=== PATIENT | male | born 1965 | race Two or more races ===

== ENCOUNTER 2018-09-22 15:55 | Inpatient (IN) | payer MEDICAID ==
[2018-09-22] MEDS ORDERED: Sodium Chloride 0.9% 1,000 ML IV ONE ×3 (16:32→23:51)
[2018-09-22] MEDS ORDERED: INSULIN HUMAN REGULAR 100 UNITS/ML UNIT IVP ONE ×2 (17:44→18:45)
[2018-09-22] MEDS ORDERED: INSULIN HUMAN REGULAR 100 UNITS/ML UNIT ONE ×3 (17:50→19:50)
[2018-09-22 18:01] LABS: PaO2 127.3 mmHg (80.0-100.0); pH 7.27 (7.35-7.45)
[2018-09-22 18:02] LABS: sO2c 98.2 % (92.0-100.0)
[2018-09-22 18:03] LABS: PaCO2 18.8 mmHg (35.0-45.0)
[2018-09-22 18:35] LABS: URINE SOURCE CLEAN C
[2018-09-22 18:39] LABS: URINE BILIRUBIN NEGATIVE (NEGATIVE); URINE BLOOD MODERATE (NEGATIVE); URINE GLUCOSE (UA) >=1000 mg/dL (NEGATIVE); URINE KETONE >=80 mg/dL (NEGATIVE); URINE LEUKOCYTE ESTERASE NEGATIVE (NEGATIVE); URINE MICROSCOPIC INDICATED? YES; URINE NITRATE NEGATIVE (NEGATIVE); URINE PH 5.5 (4.6 - 8.0); URINE PROTEIN NEGATIVE (NEGATIVE); URINE UROBILINOGEN 0.2 E.U./dL (0.2 - 1.0)
[2018-09-22 18:47] LABS: ALB/GLOB RATIO 0.7 (1.0-1.8); ALKALINE PHOSPHATASE 306 U/L (34-104); AMYLASE SERUM 147 U/L (29-103); BILIRUBIN,TOTAL 1.2 mg/dL (0.3-1.0); BUN - UREA NITROGEN 23 mg/dL (7-25); CALCIUM SERUM 8.6 mg/dL (8.6-10.3); CREATININE - SERUM 1.1 mg/dL (0.7-1.3); GFR AFRICAN-AMERICAN > 60.0 ml/min (>90); GFR NON AFRICAN-AMERICAN > 60.0 ml/min; LIPASE 37 U/L (11-82); POTASSIUM SERUM 4.4 mEq/L (3.5-5.1); SGOT 15 U/L (13-39); SGPT/ALT 15 U/L (7-52); TOTAL PROTEIN,SERUM 7.6 gm/dL (6.0-8.3)
[2018-09-22 19:19] LABS: HEMATOCRIT 37.9 % (41.0-60); HEMOGLOBIN 12.5 gm/dL (12-16); LYMPHOCYTE ABSOLUTE 0.5 Th/cmm (1.5-3.0); MEAN CELL VOLUME 93.9 fl (80-99); MEAN CORPUSCULAR HEMOGLOBIN 30.8 pg (26.0-30.0); MEAN CORPUSCULAR HGB CONC 32.9 pg (28.0-36.0); MEAN PLATELET VOLUME 9.9 fl; MONOCYTE ABSOLUTE 0.5 Th/cmm (0.3-1.0); NEUTROPHILE ABSOLUTE 10.5 Th/cmm (1.8-8.0); PLATELET COUNT 154 Th/cmm (150-400); RED BLOOD COUNT 4.04 Mil/cmm (4.30-5.70); RED CELL DISTRIBUTION WIDTH 12.1 % (11.5-20.0); WHITE BLOOD COUNT 11.5 Th/cmm (4.8-10.8)
--- NOTE | 2018-09-22 19:32 | ED Physician Chart ---
ED Chief Complaint/HPI - Patient Information Date Seen:: 09/22/18 Time Seen:: 16:32 Chief Complaint:: high blood sugar History of Present Illness:: high blood sugar in a non-compliant diabetic. Allergies:: Allergies Allergy/AdvReac Type Severity Reaction Status Date / Time No Known Allergies Allergy Verified 09/22/18 16:31 Vitals:: Vital Signs - 8 hr 09/22/18 16:32 Temp 97 F HR 77 RR 18 BP 114/75 O2 Sat % 97 Historian:: Patient, Family Member Review:: Nurse's Note Reviewed ED Review of Systems - Review of Systems General/Constitutional: No fever, No chills, Weakness, No diaphoresis, Loss of appetite Skin: No skin lesions, No rash, No bruising Head: No headache, No light-headedness Eyes: No loss of vision, No pain, No diplopia ENT: No earache, No nasal drainage, No sore throat, No tinnitus Neck: No neck pain, No swelling, No thyromegaly, No stiffness, No mass noted Cardio Vascular: No chest pain, No palpitations, No PND, No orthopnea, No edema Pulmonary: No SOB, No cough, No sputum, No wheezing GI: No nausea, No vomiting, No diarrhea, No pain, No melena, No hematochezia, No constipation, No hematemesis G/U: No dysuria, No frequency, No hematuria Musculoskeletal: No bone or joint pain, No back pain, No muscle pain Endocrine: Polyuria, Polydipsia, No polydipsia Psychiatric: No prior psych history, No depression, No anxiety, No suicidal ideation Hematopoietic: No bruising, No lymphadenopathy Allergic/Immuno: No urticaria, No angioedema Neurological: No syncope, No focal symptoms, No weakness, No paresthesia, No headache, No seizure, No dizziness, No confusion, No vertigo ED Past Medical History - Past Medical History Obtainable: No Past Medical History: DM Family Medical History - Family Member Mother History Unknown: Yes ED Physical Exam - Physical Examination General/Constitutional: Awake, Alert, GCS 15, Non-toxic appearing, Ambulatory Other Gen/Cons comments:: chronically ill appearing. Looks much older than his stated age. weak appearing Head: Atraumatic Eyes: PERRL, EOMI Other Eyes comments:: sunken in eyes. Skin: Nl inspection, No rash, No skin lesions, No ecchymosis, Well hydrated, No lymphadenopathy ENMT: External ears, nose nl, Nasal exam nl Neck: Nontender, Full ROM w/o pain, No nuchal rigidity, No mass, No stridor Respiratory: Nl effort/Exclusion, Clear to Auscultation, No Wheeze/Rhonchi/Rales Cardio Vascular: RRR, No murmur, gallop, rubs, NL S1 S2 GI: No tenderness/rebounding/guarding, No organomegaly, No hernia, Normal BS's, Nondistended, No mass/bruits, No McBurney tenderness Other comments:: left flank pain. Extremities: No tenderness or effusion, Full ROM, normal strength in all extremities, No edema, Normal digits & nails Neuro/Psych: Alert/oriented, Normal motor strength, Judgement/insight normal, Normal gait Other Neuro/Psych comments:: tired appearing. Misc: Normal back, No paraspinal tenderness ED Labs/Radiology/EKG Results - Lab Results Results: Laboratory Tests 09/22/18 09/22/18 09/22/18 16:32 17:27 17:40 WBC 11.5 H RBC 4.04 L Hgb 12.5 Hct 37.9 L MCV 93.9 MCH 30.8 H MCHC Differential 32.9 RDW 12.1 Plt Count 154 MPV 9.9 Add Manual Diff YES Specimen Source Arterial Sample Site RB pH 7.27 L pCO2 18.8 L* pO2 127.3 H HCO3 8.4 L Base Excess -16.0 L O2 Saturation 98.2 Ronny Test NA Vent Rate NA Inspired O2 21 Tidal Volume NA PEEP NA Pressure (ins/psv/peep) NA Critical Value SH Whole Bld Lactic Acid 2.18 H* ED Assessment - Assessment General Assessment: DR. WINN TO FOLLOW UP ON CT SCAN. ED Septic Shock - . Is Septic Shock (SBP<90, OR Lactate>4 mmol\L) present?: No - <6hrs of presentation: Vital Signs: Vital Signs - 8 hr 09/22/18 16:32 Temp 97 F HR 77 RR 18 BP 114/75 O2 Sat % 97 ED Reassessment (Disposition) - Reassessment Reassessment Condition:: Improved - Diagnosis Diagnosis:: Diabetic ketoacidosis Dehydration Elevated lactic acid Leukocytosis - Patient Disposition Admitted to:: ICU Condition at Disposition:: Critical, Improved
[2018-09-22] MEDS ORDERED: Sodium Chloride 0.9% 1,000 ML IV SCH (19:45)
[2018-09-22 20:12] LABS: URINE COLOR YELLOW
[2018-09-22 20:14] LABS: URINE CLARITY CLOUDY (CLEAR)
[2018-09-22 20:15] LABS: URINE RBC 0-2 /hpf (0-5)
[2018-09-22 20:17] LABS: URINE BACTERIA MANY /hpf (NONE SEEN); URINE EPITHELIAL CELLS NONE SEEN /lpf (FEW)
[2018-09-22 20:33] LABS: GLUCOSE 689 mg/dL (70-105); SODIUM SERUM 117 mEq/L (136-145)
[2018-09-22] MEDS ORDERED: Piperacillin Sodium/Tazobact 3.375 gm Vial IV ONE (21:30)
[2018-09-22 21:39] LABS: BAND NEUTROPHILE 0 % (0-10); EOSINOPHIL 1 % (0-5); LYMPHOCYTE 4 % (20-50); MONOCYTE 4 % (2-10); NEUTROPHILS 91 % (40-80)
[2018-09-22 22:44] LABS: CHLORIDE 84 mEq/L (98-107)
[2018-09-22 22:45] LABS: ANION GAP 27.4 (7.0-16.0)
[2018-09-23 00:24] LABS: ALB/GLOB RATIO 0.6 (1.0-1.8); ALBUMIN 2.3 gm/dL (4.2-5.5); ALKALINE PHOSPHATASE 227 U/L (34-104); ANION GAP 15.6 (7.0-16.0); BILIRUBIN,TOTAL 0.7 mg/dL (0.3-1.0); BUN - UREA NITROGEN 19 mg/dL (7-25); CALCIUM SERUM 7.7 mg/dL (8.6-10.3); CARBON DIOXIDE 15.9 mEq/L (21.0-31.0); CHLORIDE 98 mEq/L (98-107); CREATININE - SERUM 0.8 mg/dL (0.7-1.3); GFR AFRICAN-AMERICAN > 60.0 ml/min (>90); GFR NON AFRICAN-AMERICAN > 60.0 ml/min; POTASSIUM SERUM 3.5 mEq/L (3.5-5.1); SGOT 10 U/L (13-39); SGPT/ALT 11 U/L (7-52); SODIUM SERUM 126 mEq/L (136-145); TOTAL PROTEIN,SERUM 5.9 gm/dL (6.0-8.3)
[2018-09-23 00:31] LABS: pH 7.32 (7.35-7.45)
[2018-09-23 03:22] VITALS: BP 95/54
[2018-09-23 05:13] LABS: BASOPHILE ABSOLUTE 0.1 Th/cumm (0-0.2); LYMPHOCYTE ABSOLUTE 0.8 Th/cmm (1.5-3.0); NEUTROPHILE ABSOLUTE 8.7 Th/cmm (1.8-8.0)
[2018-09-23] MEDS ORDERED: Piperacillin Sodium/Tazobact 3.375 gm Vial IV ONE (05:21)
[2018-09-23 05:32] LABS: % BASOPHILS 0.8 % (0.0-2.0); % EOSINOPHILS 1.7 % (0.0-5.0); % LYMPHOCYTES 7.8 % (20.0-50.0); % MONOCYTES 6.3 % (2.0-10.0); % NEUTROPHILS 83.4 % (40.0-80.0); EOSINOPHILE ABSOLUTE 0.2 Th/cmm (0.1-0.4); HEMATOCRIT 34.6 % (41.0-60); HEMOGLOBIN 11.3 gm/dL (12-16); MEAN CELL VOLUME 94.4 fl (80-99); MEAN CORPUSCULAR HEMOGLOBIN 30.7 pg (26.0-30.0); MEAN CORPUSCULAR HGB CONC 32.5 pg (28.0-36.0); MEAN PLATELET VOLUME 9.3 fl; MONOCYTE ABSOLUTE 0.7 Th/cmm (0.3-1.0); PLATELET COUNT 140 Th/cmm (150-400); RED BLOOD COUNT 3.66 Mil/cmm (4.30-5.70); RED CELL DISTRIBUTION WIDTH 12.2 % (11.5-20.0); WHITE BLOOD COUNT 10.5 Th/cmm (4.8-10.8)
[2018-09-23 05:49] LABS: ALB/GLOB RATIO 0.6 (1.0-1.8); ALBUMIN 2.3 gm/dL (4.2-5.5); ALKALINE PHOSPHATASE 218 U/L (34-104); ANION GAP 14.4 (7.0-16.0); BILIRUBIN,TOTAL 0.7 mg/dL (0.3-1.0); BUN - UREA NITROGEN 18 mg/dL (7-25); CALCIUM SERUM 7.8 mg/dL (8.6-10.3); CARBON DIOXIDE 17.2 mEq/L (21.0-31.0); CHLORIDE 102 mEq/L (98-107); CREATININE - SERUM 0.8 mg/dL (0.7-1.3); CREATININE KINASE 26 U/L (30-223); GFR AFRICAN-AMERICAN > 60.0 ml/min (>90); GFR NON AFRICAN-AMERICAN > 60.0 ml/min; GLUCOSE 300 mg/dL (70-105); MAGNESIUM 1.8 mg/dL (1.9-2.7); POTASSIUM SERUM 3.6 mEq/L (3.5-5.1); SGOT 10 U/L (13-39); SGPT/ALT 11 U/L (7-52); SODIUM SERUM 130 mEq/L (136-145); TOTAL PROTEIN,SERUM 5.9 gm/dL (6.0-8.3)
--- NOTE | 2018-09-23 07:19 | Diagnostic Imaging Report ---
Exam: CT examination abdomen pelvis. HISTORY: Left flank pain. Total DLP equals 368 CTDI equals 7.3 Findings: Multiple contiguous thin section of the abdomen pelvis obtained from lower thorax to pubic symphysis without the administration intravenous or oral contrast material therefore the study is limited. Motion artifacts present. No prior studies available for comparison. The study demonstrates mild atelectatic changes in the left lung base. The liver and spleen are intact. The visualized pancreas is normal. The gallbladder is distended. The kidneys demonstrate no evidence of obstructive uropathy or nephrolithiasis. Evaluation of the abdomen is limited due to lack of fat planes. There is evidence for distention of the urinary bladder. The appendix is not seen. Bony structures intact. There is no evidence for lytic or blastic changes. Vascular calcifications appreciated. IMPRESSION: Limited examination without contrast material. Left basilar atelectasis. Distended urinary bladder. No evidence of obstructive uropathy or nephrolithiasis.
[2018-09-23] MEDS ORDERED: INSULIN HUMAN REGULAR 100 UNITS/ML UNIT SUBQ SCH (07:30)
[2018-09-23 07:41] LABS: BAND NEUTROPHILE 1 % (0-10); LYMPHOCYTE 10 % (20-50); MONOCYTE 6 % (2-10); NEUTROPHILS 83 % (40-80)
[2018-09-23] MEDS: INSULIN ASPART SLIDING SCALE 100 UNITS/ML UNIT SUBQ SCH ×4 (08:20→21:28)
[2018-09-23] MEDS ORDERED: Pneumococcal Vaccine 0.5 mL Vial IM ONE (10:00)
[2018-09-23 13:55] LABS: GLUCOSE 355 mg/dL (70-105)
[2018-09-23] MEDS: 0.9% NS w/20 mEq KCL 1,000 ML IV SCH (15:57)
[2018-09-23] MEDS ORDERED: Insulin Detemir 100 units/mL 10mL Vial SUBQ SCH ×2 (17:15→21:00)
[2018-09-23] MEDS: Insulin Detemir 100 units/mL 10mL Vial SUBQ SCH (17:32)
--- NOTE | 2018-09-23 23:49 | History & Physical ---
ADMIT DATE: 09/23/2018 CHIEF COMPLAINT: Left flank pain. HISTORY OF PRESENT ILLNES: This is a 53-year-old male who was evaluated and seen for left flank pain, diagnosed with hyperglycemia with acidosis, subsequently admitted to the hospital for further treatments. The patient denies any fever, no chills, no dysuria, no nausea, no vomiting, no abdominal pain, no diarrhea, no vomiting. The patient's last review with his PCP was about more than 6 months ago. The patient states he has not been taking his diabetic medications on a regular basis. PAST MEDICAL HISTORY: Diabetes. PAST SURGICAL HISTORY: Denies. FAMILY HISTORY: Denies. SOCIAL HISTORY: Denies any alcohol, tobacco, or street drug use. MEDICATIONS: Per medication reconciliation. ALLERGIES: No known drug allergies. REVIEW OF SYSTEMS: As per HPI, 12-point review of system is negative. PHYSICAL EXAMINATION: VITAL SIGNS: Temperature 98.0, pulse 87, respiration 20, blood pressure 90/62, pain is 0/10, 100% on room air. HEENT: Unremarkable. HEART: S1, S2 normal. LUNGS: Clear to auscultation bilaterally. ABDOMEN: Soft, nontender, no guarding. NEUROLOGIC: ___. LABORATORY DATA: Has been reviewed. ASSESSMENT: 1. Leukocytosis with elevated lactic acid, questionable sepsis. 2. DKA. 3. Hyperglycemia. 4. Noncompliant. PLANT: The patient was admitted to tele unit. Was started on high flow IV floods, basal bolus insulin started. Monitor blood sugar closely. Empiric antibiotic is being given. Follow final cultures. Followup labs in the morning. Medication and treatment compliance highly advised. CT abdomen and pelvis results reviewed. No significant findings noted. Discussed with the patient regarding the condition and plan of care with nursing staff. JOB# [id number]
[2018-09-24 05:08] LABS: % BASOPHILS 0.7 % (0.0-2.0); % EOSINOPHILS 0.8 % (0.0-5.0); % LYMPHOCYTES 11.3 % (20.0-50.0); % MONOCYTES 7.7 % (2.0-10.0); % NEUTROPHILS 79.5 % (40.0-80.0); BASOPHILE ABSOLUTE 0.1 Th/cumm (0-0.2); EOSINOPHILE ABSOLUTE 0.1 Th/cmm (0.1-0.4); HEMATOCRIT 32.6 % (41.0-60); HEMOGLOBIN 10.9 gm/dL (12-16); LYMPHOCYTE ABSOLUTE 0.9 Th/cmm (1.5-3.0); MEAN CELL VOLUME 91.8 fl (80-99); MEAN CORPUSCULAR HEMOGLOBIN 30.6 pg (26.0-30.0); MEAN CORPUSCULAR HGB CONC 33.4 pg (28.0-36.0); MEAN PLATELET VOLUME 8.1 fl; MONOCYTE ABSOLUTE 0.6 Th/cmm (0.3-1.0); NEUTROPHILE ABSOLUTE 6.5 Th/cmm (1.8-8.0); PLATELET COUNT 123 Th/cmm (150-400); RED BLOOD COUNT 3.55 Mil/cmm (4.30-5.70); RED CELL DISTRIBUTION WIDTH 12.3 % (11.5-20.0); WHITE BLOOD COUNT 8.2 Th/cmm (4.8-10.8)
[2018-09-24] MEDS: 0.9% NS w/20 mEq KCL 1,000 ML IV SCH (05:12)
[2018-09-24 05:25] LABS: BUN - UREA NITROGEN 19 mg/dL (7-25); CALCIUM SERUM 7.8 mg/dL (8.6-10.3); CARBON DIOXIDE 22.1 mEq/L (21.0-31.0); CHLORIDE 106 mEq/L (98-107); CREATININE - SERUM 0.9 mg/dL (0.7-1.3); GFR AFRICAN-AMERICAN > 60.0 ml/min (>90); GFR NON AFRICAN-AMERICAN > 60.0 ml/min; POTASSIUM SERUM 3.1 mEq/L (3.5-5.1); SODIUM SERUM 134 mEq/L (136-145)
[2018-09-24 05:37] LABS: GLUCOSE 95 mg/dL (70-105)
--- NOTE | 2018-09-24 05:49 | Consultation ---
DATE OF CONSULTATION: 09/23/2018 INFECTIOUS DISEASE CONSULTATION REFERRING PHYSICIAN: Dr. Eliseo Meléndez. REASON FOR CONSULTATION: UTI. HISTORY OF PRESENT ILLNESS: The patient is a 53-year-old male with a past medical history of diabetes mellitus type 2 diagnosed recently hypokalemia, presented to ER with a left-sided flank pain. The patient denies any fever or chills. On initial evaluation, the patient's temperature was 97 degrees Fahrenheit and WBC count was 10,500. Urinalysis showed significant pyuria and bacteria. Blood culture and urine cultures are pending. Zosyn was started and ID consult was called for the antibiotic management. PAST MEDICAL HISTORY: Include diabetes mellitus type 2. PAST SURGICAL HISTORY: Unknown. FAMILY HISTORY: Noncontributory. SOCIAL HISTORY: The patient denies any smoking, alcohol or drug use. MEDICATIONS: As per medication reconciliation sheet. Antibiotic perera, the patient is on Zosyn. ALLERGIES: NKDA. REVIEW OF SYSTEMS: GENERAL: The patient has no fever, no chills. HEENT: No diplopia, no photophobia, no sore throat. RESPIRATORY: No cough, no shortness of breath. CARDIOVASCULAR: No chest pain or palpitation. GASTROINTESTINAL: No nausea, no vomiting, no diarrhea, no constipation. GENITOURINARY: No dysuria. NEUROLOGIC: No headache, no dizziness, no focal weakness. BACK: The patient has no tenderness. No spinal tenderness. MUSCULOSKELETAL: No muscle pain or joint pain. SKIN: No rash. PHYSICAL EXAMINATION: CURRENT VITAL SIGNS: Shows temperature is 98 degrees Fahrenheit, pulse 87, respiration is 20, blood pressure 98/62. GENERAL: The patient is comfortable lying in the bed, not in acute distress. HEENT: Head is normocephalic, atraumatic. Oral cavity moist, pink tongue. NECK: Supple, no JVD, no bruit. Trachea midline. CHEST: Bilateral breaths heard. No crackles or wheezing. HEART: S1, S2 within normal limits. Regular rhythm. No murmur, no gallop. ABDOMEN: Soft, nontender, nondistended. Bowel sounds present. EXTREMITIES: No cyanosis, no clubbing, no edema. NEUROLOGICAL: Alert, awake, oriented x 3. BACK: The patient has no CVA tenderness, no spinal tenderness. SKIN: Intact. LABORATORY PERERA: WBC count 10,500, hemoglobin 11.3, hematocrit 34.6, platelets are 140,000, neutrophils 83.4%. Sodium 130, potassium 3.6, chloride 102, bicarb is 17.2, BUN is 18, creatinine 0.8, glucose is 300. AST is 10, ALT is 11, alkaline phosphatase 218, magnesium 1.8. CT scan of abdomen and pelvis, left basal atelectasis, distended urinary bladder. CT scan shows a distended urinary bladder. IMPRESSION: 1. Complicated urinary tract infection. 2. Diabetes mellitus type 2. 3. Diabetic ketoacidosis. 4. Noncompliance. 4. Hypomagnesemia. RECOMMENDATIONS: Continue Zosyn at this time. Follow the culture report and go from there. Add acetone level and PSA level in the morning. Check the labs in the morning. Thank you, Dr. Meléndez, for involving me in taking care of this patient. JOB# [id number]
[2018-09-24] MEDS: INSULIN ASPART SLIDING SCALE 100 UNITS/ML UNIT SUBQ SCH ×4 (07:42→20:58)
[2018-09-24] MEDS: Insulin Detemir 100 units/mL 10mL Vial SUBQ SCH (17:32)
[2018-09-24] MEDS ORDERED: Potassium Chloride 20 mEq ER Tab PO ONE (18:26)
--- NOTE | 2018-09-24 20:44 | General Progress Note ---
Subjective - Review of Systems Service Date: 09/24/18 Subjective: Patient doing better denied any complaints Objective - Results Result Diagrams: 09/24/18 05:00 09/24/18 05:00 Recent Labs: Laboratory Last Values WBC 8.2 Th/cmm (4.8-10.8) 09/24/18 05:00 RBC 3.55 Mil/cmm (4.30-5.70) L 09/24/18 05:00 Hgb 10.9 gm/dL (12-16) L 09/24/18 05:00 Hct 32.6 % (41.0-60) L 09/24/18 05:00 MCV 91.8 fl (80-99) 09/24/18 05:00 MCH 30.6 pg (26.0-30.0) H 09/24/18 05:00 MCHC Differential 33.4 pg (28.0-36.0) 09/24/18 05:00 RDW 12.3 % (11.5-20.0) 09/24/18 05:00 Plt Count 123 Th/cmm (150-400) L 09/24/18 05:00 MPV 8.1 fl 09/24/18 05:00 Add Manual Diff YES 09/22/18 16:32 Neutrophils % 79.5 % (40.0-80.0) 09/24/18 05:00 Band Neutrophils % 1 % (0-10) 09/23/18 05:00 Lymphocytes % 11.3 % (20.0-50.0) L 09/24/18 05:00 Monocytes % 7.7 % (2.0-10.0) 09/24/18 05:00 Eosinophils % 0.8 % (0.0-5.0) 09/24/18 05:00 Basophils % 0.7 % (0.0-2.0) 09/24/18 05:00 Neutrophils (Manual) 83 % (40-80) H 09/23/18 05:00 Lymphocytes 10 % (20-50) L 09/23/18 05:00 Monocytes 6 % (2-10) 09/23/18 05:00 Eosinophils 1 % (0-5) 09/22/18 16:32 Smear Path Review 09/23/18 05:00 Specimen Source arterial 09/22/18 23:41 Sample Site RB 09/22/18 23:41 pH 7.32 (7.35-7.45) L 09/22/18 23:41 pCO2 27.0 mmHg (35.0-45.0) L 09/22/18 23:41 pO2 103.0 mmHg (80.0-100.0) H 09/22/18 23:41 HCO3 13.7 mEq/L (20.0-26.0) L 09/22/18 23:41 Base Excess -10.5 mEq/L (-3.0-3.0) L 09/22/18 23:41 O2 Saturation 97.0 % (92.0-100.0) 09/22/18 23:41 Ronny Test n/a 09/22/18 23:41 Vent Rate n/a 09/22/18 23:41 Inspired O2 21 09/22/18 23:41 Tidal Volume n/a 09/22/18 23:41 PEEP n/a 09/22/18 23:41 Pressure (ins/psv/peep) n/a 09/22/18 23:41 Critical Value dv 09/22/18 23:41 Sodium 134 mEq/L (136-145) L 09/24/18 05:00 Potassium 3.1 mEq/L (3.5-5.1) L 09/24/18 05:00 Chloride 106 mEq/L (98-107) 09/24/18 05:00 Carbon Dioxide 22.1 mEq/L (21.0-31.0) 09/24/18 05:00 Anion Gap 9.0 (7.0-16.0) 09/24/18 05:00 BUN 19 mg/dL (7-25) 09/24/18 05:00 Creatinine 0.9 mg/dL (0.7-1.3) 09/24/18 05:00 Est GFR ( Amer) > 60.0 ml/min (>90) 09/24/18 05:00 Est GFR (Non-Af Amer) > 60.0 ml/min 09/24/18 05:00 BUN/Creatinine Ratio 21.1 09/24/18 05:00 Glucose 95 mg/dL (70-105) D 09/24/18 05:00 POC Glucose 314 MG/DL (70 - 105) H 09/24/18 17:00 Whole Bld Lactic Acid 2.21 mmol/L (0.60-1.99) H* 09/22/18 21:07 Calcium 7.8 mg/dL (8.6-10.3) L 09/24/18 05:00 Phosphorus 3.0 mg/dL (2.5-5.0) 09/22/18 17:40 Magnesium 1.8 mg/dL (1.9-2.7) L 09/23/18 05:00 Total Bilirubin 0.7 mg/dL (0.3-1.0) 09/23/18 05:00 AST 10 U/L (13-39) L 09/23/18 05:00 ALT 11 U/L (7-52) 09/23/18 05:00 Alkaline Phosphatase 218 U/L (34-104) H 09/23/18 05:00 Creatine Kinase 20 U/L (30-223) L 09/23/18 21:45 Troponin I 0.01 ng/mL (0.01-0.05) 09/23/18 21:45 Total Protein 5.9 gm/dL (6.0-8.3) L 09/23/18 05:00 Albumin 2.3 gm/dL (4.2-5.5) L 09/23/18 05:00 Globulin 3.6 gm/dL 09/23/18 05:00 Albumin/Globulin Ratio 0.6 (1.0-1.8) L 09/23/18 05:00 Amylase 147 U/L (29-103) H 09/22/18 17:40 Lipase 37 U/L (11-82) 09/22/18 17:40 Urine Source CLEAN C 09/22/18 16:22 Urine Color YELLOW 09/22/18 16:22 Urine Clarity CLOUDY (CLEAR) 09/22/18 16:22 Urine pH 5.5 (4.6 - 8.0) 09/22/18 16:22 Ur Specific Mcdade 1.015 (1.005-1.030) 09/22/18 16:22 Urine Protein NEGATIVE mg/dL (NEGATIVE) 09/22/18 16:22 Urine Glucose (UA) >=1000 mg/dL (NEGATIVE) H 09/22/18 16:22 Urine Ketones >=80 mg/dL (NEGATIVE) H 09/22/18 16:22 Urine Blood MODERATE (NEGATIVE) H 09/22/18 16:22 Urine Nitrate NEGATIVE (NEGATIVE) 09/22/18 16:22 Urine Bilirubin NEGATIVE (NEGATIVE) 09/22/18 16:22 Urine Urobilinogen 0.2 E.U./dL (0.2 - 1.0) 09/22/18 16:22 Ur Leukocyte Esterase NEGATIVE (NEGATIVE) 09/22/18 16:22 Urine RBC 0-2 /hpf (0-5) H 09/22/18 16:22 Urine WBC 10-25 /hpf (0-5) H 09/22/18 16:22 Ur Epithelial Cells NONE SEEN /lpf (FEW) 09/22/18 16:22 Urine Bacteria MANY /hpf (NONE SEEN) H 09/22/18 16:22 Serum Ketones NEGATIVE (NEGATIVE) 09/24/18 05:00 - Physical Exam Vitals and I&O: Vital Signs Temp 98.5 F 09/24/18 13:00 Pulse 90 09/24/18 13:00 Resp 18 09/24/18 13:00 BP 99/67 09/24/18 13:00 Pulse Ox 97 09/24/18 08:12 Intake & Output 09/24/18 09/24/18 09/25/18 06:59 18:59 06:59 Intake Total 1250 750 Balance 1250 750 Weight (lbs) 54.431 kg 54.431 kg Intake: Intake, IV Amount 1100 50 0.9% NS w/20 mEq KCL 1, 1000 000 ml @ 100 mls/hr IV . Q10H [facility] Rx#:[id number] Piperacillin Sodium/ 100 50 Tazobact 3.375 gm In Sodium Chloride 0.9% 50 ml @ 100 mls/hr IV Q6HR [facility] Rx#:[id number] Oral 150 700 Other: # Voids 3 3 # Bowel Movements 0 1 Stool Characteristics Formed Formed Weight Source Bedscale Bedscale Active Medications: Current Medications Acetaminophen (Tylenol) 650 mg PO Q6H PRN PRN Reason: Pain (Mild) Stop: 11/22/18 12:44 Last Admin: 09/23/18 13:12 Dose: 650 mg Potassium Chloride/Sodium Chloride (0.9% Ns W/20 Meq Kcl) 1,000 mls @ 100 mls/ hr IV .Q10H [facility] Stop: 11/22/18 00:50 Last Admin: 09/24/18 05:12 Dose: 100 mls/hr Piperacillin Sod/Tazobactam (Sod 3.375 gm/ Sodium Chloride) 50 mls @ 100 mls/ hr IV Q6HR [facility] Stop: 11/22/18 05:59 Last Admin: 09/24/18 17:34 Dose: 100 mls/hr Insulin Aspart (Novolog Insulin Sliding Scale) 0 units SUBQ ACHS [facility]; Protocol Stop: 11/22/18 07:29 Last Admin: 09/24/18 17:27 Dose: 9 units Insulin Detemir (Levemir Insulin) 30 units SUBQ QPM [facility]; Protocol Stop: 11/22/18 17:29 Last Admin: 09/24/18 17:32 Dose: 30 units Ondansetron HCl (Zofran) 4 mg IV Q6H PRN PRN Reason: Nausea / Vomiting Stop: 11/22/18 17:20 Tramadol HCl (Ultram) 50 mg PO Q6HR PRN PRN Reason: Severe Pain Stop: 11/22/18 17:20 Last Admin: 09/23/18 21:27 Dose: 50 mg General: Alert Cardiovascular: Regular rate Lungs: Clear to auscultation Abdomen: Soft, no Tender Assessment/Plan - Assessment Assessment: DKA UTI Hypokalemia Non Compliance - Plan Plan: Continue antibiotics Blood sugar better Basal bolus insulin K replacement DC IV Fluids Nutritional Asmnt/Malnutr-PDOC - Dietary Evaluation Malnutrition Findings (Please click <Entered> for more info): Nutritional Asmnt/Malnutrition Start: 09/23/18 15: 27 Text: Status: Complete Freq: Protocol: Document 09/23/18 15:28 LCHENG (Rec: 09/23/18 15:38 [email or web address] [email or web address]) Nutritional Asmnt/Malnutrition Patient General Information Nutritional Screening High Risk Consult Diagnosis DKA, UTI Pertinent Medical Hx/Surgical Hx DM Subjective Information Consult received for new onset of DM. Glucose 689 at admission noted. Pt seen lying in bed at time of visit, family at bedside, Kazakh speaking. MAINTENANCE OF WAY SUPERVISOR helped with translation. Pt stated he check blood sugar three times daily at home. Offered diabetic nutrition education and pt would like to read education materials. Pt consumed 100% o fbreakfast this morning per EMR. Current Diet Order/ Nutrition Support CCHO Pertinent Medications novolog, piperacillin, 0.9ns w 20 meq kcl Pertinent Labs 2/4 Na 130, Glucose 300, POC 278-390, Ca 7.8 2/3 Na 126, Glucose 355, POC 308, Ca 7.7, alb 2.3 Nutritional Hx/Data Height 1.73 m Height (Calculated Centimeters) 172.7 Current Weight (lbs) 54.431 kg Weight (Calculated Kilograms) 54.4 Weight (Calculated Grams) 51199.1 [place] Body Weight 154 Body Mass Index (BMI) 18.2 Weight Status Underweight GI Symptoms GI Symptoms None Last BM 2/4 Difficult in: None Skin Integrity/Comment: intact Current %PO Good (75-100%) Estimated Nutritional Goals Calories/Kcals/Kg 25-30 based on IBW 70kg Kcals Calculated 8399-7062 Protein g/k-1.2 Protein Calculated 70-84 Fluid: ml 1750-2100ml (1ml/kcal) Nutritional Problem 1. Problem Problem altered nutrition related labs Etiology hyperglycemia, hx of DM Signs/Symptoms: glucose 300-689, POC 278-390 Malnutrition Related to Morbid Obesity Malnutrition related to morbid obesity No Intervention/Recommendation Comments 1. Continue with [facility] diet as ordered. Diabetic education matirials was given to pt. Not able to discuss diabetes management d/t language barrier. 2. Monitor PO intake, wt, labs and skin integrity 3. F/U as high risk in 2-3 days Expected Outcomes/Goals Expected Outcomes/Goals 1. PO intake to meet at least 75% of nutritional needs. 2. Wt stability, skin to remain intact, labs to approach WNL.
--- NOTE | 2018-09-25 00:01 | Infectious Disease Prog Note ---
Infectious Disease Subjective - Review of Systems Service Date: 09/24/18 Subjective: No change, no fever. Infectious Disease Objective - Results Result Diagrams: 09/24/18 05:00 09/24/18 05:00 Recent Labs: Laboratory Last Values WBC 8.2 Th/cmm (4.8-10.8) 09/24/18 05:00 RBC 3.55 Mil/cmm (4.30-5.70) L 09/24/18 05:00 Hgb 10.9 gm/dL (12-16) L 09/24/18 05:00 Hct 32.6 % (41.0-60) L 09/24/18 05:00 MCV 91.8 fl (80-99) 09/24/18 05:00 MCH 30.6 pg (26.0-30.0) H 09/24/18 05:00 MCHC Differential 33.4 pg (28.0-36.0) 09/24/18 05:00 RDW 12.3 % (11.5-20.0) 09/24/18 05:00 Plt Count 123 Th/cmm (150-400) L 09/24/18 05:00 MPV 8.1 fl 09/24/18 05:00 Add Manual Diff YES 09/22/18 16:32 Neutrophils % 79.5 % (40.0-80.0) 09/24/18 05:00 Band Neutrophils % 1 % (0-10) 09/23/18 05:00 Lymphocytes % 11.3 % (20.0-50.0) L 09/24/18 05:00 Monocytes % 7.7 % (2.0-10.0) 09/24/18 05:00 Eosinophils % 0.8 % (0.0-5.0) 09/24/18 05:00 Basophils % 0.7 % (0.0-2.0) 09/24/18 05:00 Neutrophils (Manual) 83 % (40-80) H 09/23/18 05:00 Lymphocytes 10 % (20-50) L 09/23/18 05:00 Monocytes 6 % (2-10) 09/23/18 05:00 Eosinophils 1 % (0-5) 09/22/18 16:32 Smear Path Review 09/23/18 05:00 Specimen Source arterial 09/22/18 23:41 Sample Site RB 09/22/18 23:41 pH 7.32 (7.35-7.45) L 09/22/18 23:41 pCO2 27.0 mmHg (35.0-45.0) L 09/22/18 23:41 pO2 103.0 mmHg (80.0-100.0) H 09/22/18 23:41 HCO3 13.7 mEq/L (20.0-26.0) L 09/22/18 23:41 Base Excess -10.5 mEq/L (-3.0-3.0) L 09/22/18 23:41 O2 Saturation 97.0 % (92.0-100.0) 09/22/18 23:41 Ronny Test n/a 09/22/18 23:41 Vent Rate n/a 09/22/18 23:41 Inspired O2 21 09/22/18 23:41 Tidal Volume n/a 09/22/18 23:41 PEEP n/a 09/22/18 23:41 Pressure (ins/psv/peep) n/a 09/22/18 23:41 Critical Value dv 09/22/18 23:41 Sodium 134 mEq/L (136-145) L 09/24/18 05:00 Potassium 3.1 mEq/L (3.5-5.1) L 09/24/18 05:00 Chloride 106 mEq/L (98-107) 09/24/18 05:00 Carbon Dioxide 22.1 mEq/L (21.0-31.0) 09/24/18 05:00 Anion Gap 9.0 (7.0-16.0) 09/24/18 05:00 BUN 19 mg/dL (7-25) 09/24/18 05:00 Creatinine 0.9 mg/dL (0.7-1.3) 09/24/18 05:00 Est GFR ( Amer) > 60.0 ml/min (>90) 09/24/18 05:00 Est GFR (Non-Af Amer) > 60.0 ml/min 09/24/18 05:00 BUN/Creatinine Ratio 21.1 09/24/18 05:00 Glucose 95 mg/dL (70-105) D 09/24/18 05:00 POC Glucose 396 MG/DL (70 - 105) H 09/24/18 20:39 Whole Bld Lactic Acid 2.21 mmol/L (0.60-1.99) H* 09/22/18 21:07 Calcium 7.8 mg/dL (8.6-10.3) L 09/24/18 05:00 Phosphorus 3.0 mg/dL (2.5-5.0) 09/22/18 17:40 Magnesium 1.8 mg/dL (1.9-2.7) L 09/23/18 05:00 Total Bilirubin 0.7 mg/dL (0.3-1.0) 09/23/18 05:00 AST 10 U/L (13-39) L 09/23/18 05:00 ALT 11 U/L (7-52) 09/23/18 05:00 Alkaline Phosphatase 218 U/L (34-104) H 09/23/18 05:00 Creatine Kinase 20 U/L (30-223) L 09/23/18 21:45 Troponin I 0.01 ng/mL (0.01-0.05) 09/23/18 21:45 Total Protein 5.9 gm/dL (6.0-8.3) L 09/23/18 05:00 Albumin 2.3 gm/dL (4.2-5.5) L 09/23/18 05:00 Globulin 3.6 gm/dL 09/23/18 05:00 Albumin/Globulin Ratio 0.6 (1.0-1.8) L 09/23/18 05:00 Amylase 147 U/L (29-103) H 09/22/18 17:40 Lipase 37 U/L (11-82) 09/22/18 17:40 Urine Source CLEAN C 09/22/18 16:22 Urine Color YELLOW 09/22/18 16:22 Urine Clarity CLOUDY (CLEAR) 09/22/18 16:22 Urine pH 5.5 (4.6 - 8.0) 09/22/18 16:22 Ur Specific [place] 1.015 (1.005-1.030) 09/22/18 16:22 Urine Protein NEGATIVE mg/dL (NEGATIVE) 09/22/18 16:22 Urine Glucose (UA) >=1000 mg/dL (NEGATIVE) H 09/22/18 16:22 Urine Ketones >=80 mg/dL (NEGATIVE) H 09/22/18 16:22 Urine Blood MODERATE (NEGATIVE) H 09/22/18 16:22 Urine Nitrate NEGATIVE (NEGATIVE) 09/22/18 16:22 Urine Bilirubin NEGATIVE (NEGATIVE) 09/22/18 16:22 Urine Urobilinogen 0.2 E.U./dL (0.2 - 1.0) 09/22/18 16:22 Ur Leukocyte Esterase NEGATIVE (NEGATIVE) 09/22/18 16:22 Urine RBC 0-2 /hpf (0-5) H 09/22/18 16:22 Urine WBC 10-25 /hpf (0-5) H 09/22/18 16:22 Ur Epithelial Cells NONE SEEN /lpf (FEW) 09/22/18 16:22 Urine Bacteria MANY /hpf (NONE SEEN) H 09/22/18 16:22 Serum Ketones NEGATIVE (NEGATIVE) 09/24/18 05:00 - Physical Exam Vitals and I&O: Vital Signs Temp 98.9 F 09/24/18 20:00 Pulse 94 09/24/18 21:00 Resp 18 09/24/18 21:00 BP 105/75 09/24/18 20:00 Pulse Ox 96 09/24/18 21:00 Intake & Output 09/24/18 09/24/18 09/25/18 06:59 18:59 06:59 Intake Total 1250 800 Balance 1250 800 Weight (lbs) 54.431 kg 54.431 kg Intake: Intake, IV Amount 1100 100 0.9% NS w/20 mEq KCL 1, 1000 000 ml @ 100 mls/hr IV . Q10H [facility] Rx#:[id number] Piperacillin Sodium/ 100 100 Tazobact 3.375 gm In Sodium Chloride 0.9% 50 ml @ 100 mls/hr IV Q6HR [facility] Rx#:[id number] Oral 150 700 Other: # Voids 3 3 # Bowel Movements 0 1 Stool Characteristics Formed Formed Formed Weight Source Bedscale Bedscale Active Medications: Current Medications Acetaminophen (Tylenol) 650 mg PO Q6H PRN PRN Reason: Pain (Mild) Stop: 11/22/18 12:44 Last Admin: 09/23/18 13:12 Dose: 650 mg Potassium Chloride/Sodium Chloride (0.9% Ns W/20 Meq Kcl) 1,000 mls @ 100 mls/ hr IV .Q10H [facility] Stop: 11/22/18 00:50 Last Admin: 09/24/18 05:12 Dose: 100 mls/hr Piperacillin Sod/Tazobactam (Sod 3.375 gm/ Sodium Chloride) 50 mls @ 100 mls/ hr IV Q6HR [facility] Stop: 11/22/18 05:59 Last Admin: 09/24/18 23:51 Dose: 100 mls/hr Insulin Aspart (Novolog Insulin Sliding Scale) 0 units SUBQ ACHS [facility]; Protocol Stop: 11/22/18 07:29 Last Admin: 09/24/18 20:58 Dose: 11 units Insulin Detemir (Levemir Insulin) 30 units SUBQ QPM [facility]; Protocol Stop: 11/22/18 17:29 Last Admin: 09/24/18 17:32 Dose: 30 units Ondansetron HCl (Zofran) 4 mg IV Q6H PRN PRN Reason: Nausea / Vomiting Stop: 11/22/18 17:20 Tramadol HCl (Ultram) 50 mg PO Q6HR PRN PRN Reason: Severe Pain Stop: 11/22/18 17:20 Last Admin: 09/24/18 20:59 Dose: 50 mg General: no acute distress, well developed, well nourished HEENT: atraumatic, normocephalic, PERRLA, EOMI Neck: supple, no thyromegaly Cardiovascular: S1S2, regular Lungs: clear to auscultation bilaterally, clear to percussion Abdomen: soft, no tender, no distended Extremities: no cyanosis, no clubbing, no edema Neurological: awake, alert, oriented Infectious Disease Assmt/Plan - Assessment Assessment: 1. Complicated urinary tract infection. 2. Diabetes mellitus type 2. 3. Diabetic ketoacidosis. 4. Noncompliance. 4. Hypomagnesemia. - Plan Plan: Change Zosyn to diflucan and cipro. Nutritional Asmnt/Malnutr-PDOC - Dietary Evaluation Malnutrition Findings (Please click <Entered> for more info): Nutritional Asmnt/Malnutrition Start: 09/23/18 15: 27 Text: Status: Complete Freq: Protocol: Document 09/23/18 15:28 FROILAN (Rec: 09/23/18 15:38 FROILAN [facility]) Nutritional Asmnt/Malnutrition Patient General Information Nutritional Screening High Risk Consult Diagnosis DKA, UTI Pertinent Medical Hx/Surgical Hx DM Subjective Information Consult received for new onset of DM. Glucose 689 at admission noted. Pt seen lying in bed at time of visit, family at bedside, [place] Islander speaking. FIELD REPRESENTATIVES DIRECTOR helped with translation. Pt stated he check blood sugar three times daily at home. Offered diabetic nutrition education and pt would like to read education materials. Pt consumed 100% o fbreakfast this morning per EMR. Current Diet Order/ Nutrition Support [facility] Pertinent Medications novolog, piperacillin, 0.9ns w 20 meq kcl Pertinent Labs 2/4 Na 130, Glucose 300, POC 278-390, Ca 7.8 2/3 Na 126, Glucose 355, POC 308, Ca 7.7, alb 2.3 Nutritional Hx/Data Height 1.73 m Height (Calculated Centimeters) 172.7 Current Weight (lbs) 54.431 kg Weight (Calculated Kilograms) 54.4 Weight (Calculated Grams) 92905.1 [place] Body Weight 154 Body Mass Index (BMI) 18.2 Weight Status Underweight GI Symptoms GI Symptoms None Last BM 2/4 Difficult in: None Skin Integrity/Comment: intact Current %PO Good (75-100%) Estimated Nutritional Goals Calories/Kcals/Kg 25-30 based on IBW 70kg Kcals Calculated 8998-9062 Protein g/k-1.2 Protein Calculated 70-84 Fluid: ml 1750-2100ml (1ml/kcal) Nutritional Problem 1. Problem Problem altered nutrition related labs Etiology hyperglycemia, hx of DM Signs/Symptoms: glucose 300-689, POC 278-390 Malnutrition Related to Morbid Obesity Malnutrition related to morbid obesity No Intervention/Recommendation Comments 1. Continue with [facility] diet as ordered. Diabetic education matirials was given to pt. Not able to discuss diabetes management d/t language barrier. 2. Monitor PO intake, wt, labs and skin integrity 3. F/U as high risk in 2-3 days Expected Outcomes/Goals Expected Outcomes/Goals 1. PO intake to meet at least 75% of nutritional needs. 2. Wt stability, skin to remain intact, labs to approach WNL.
[2018-09-25] MEDS: 0.9% NS w/20 mEq KCL 1,000 ML IV SCH (05:42)
[2018-09-25 06:26] LABS: % BASOPHILS 0.6 % (0.0-2.0); % EOSINOPHILS 1.1 % (0.0-5.0); % LYMPHOCYTES 12.3 % (20.0-50.0); % MONOCYTES 6.9 % (2.0-10.0); % NEUTROPHILS 79.1 % (40.0-80.0); BASOPHILE ABSOLUTE 0.1 Th/cumm (0-0.2); EOSINOPHILE ABSOLUTE 0.1 Th/cmm (0.1-0.4); HEMOGLOBIN 10.4 gm/dL (12-16); LYMPHOCYTE ABSOLUTE 1.2 Th/cmm (1.5-3.0); MEAN CELL VOLUME 92.6 fl (80-99); MEAN CORPUSCULAR HEMOGLOBIN 31.1 pg (26.0-30.0); MEAN CORPUSCULAR HGB CONC 33.6 pg (28.0-36.0); MEAN PLATELET VOLUME 8.2 fl; MONOCYTE ABSOLUTE 0.7 Th/cmm (0.3-1.0); NEUTROPHILE ABSOLUTE 7.8 Th/cmm (1.8-8.0); PLATELET COUNT 131 Th/cmm (150-400); RED BLOOD COUNT 3.34 Mil/cmm (4.30-5.70); RED CELL DISTRIBUTION WIDTH 12.3 % (11.5-20.0); WHITE BLOOD COUNT 9.9 Th/cmm (4.8-10.8)
[2018-09-25 07:14] LABS: ANION GAP 10.5 (7.0-16.0); BUN - UREA NITROGEN 21 mg/dL (7-25); CARBON DIOXIDE 23.4 mEq/L (21.0-31.0); CHLORIDE 106 mEq/L (98-107); CREATININE - SERUM 1.1 mg/dL (0.7-1.3); GFR AFRICAN-AMERICAN > 60.0 ml/min (>90); GFR NON AFRICAN-AMERICAN > 60.0 ml/min; GLUCOSE 107 mg/dL (70-105); POTASSIUM SERUM 3.9 mEq/L (3.5-5.1); SODIUM SERUM 136 mEq/L (136-145)
[2018-09-25] MEDS: INSULIN ASPART SLIDING SCALE 100 UNITS/ML UNIT SUBQ SCH ×2 (07:18→12:27)
--- NOTE | 2018-09-25 10:09 | Infectious Disease Prog Note ---
Infectious Disease Subjective - Review of Systems Service Date: 09/25/18 Subjective: No change, no fever. Infectious Disease Objective - Results Result Diagrams: 09/25/18 06:15 09/25/18 06:15 Recent Labs: Laboratory Last Values WBC 9.9 Th/cmm (4.8-10.8) 09/25/18 06:15 RBC 3.34 Mil/cmm (4.30-5.70) L 09/25/18 06:15 Hgb 10.4 gm/dL (12-16) L 09/25/18 06:15 Hct 31.0 % (41.0-60) L 09/25/18 06:15 MCV 92.6 fl (80-99) 09/25/18 06:15 MCH 31.1 pg (26.0-30.0) H 09/25/18 06:15 MCHC Differential 33.6 pg (28.0-36.0) 09/25/18 06:15 RDW 12.3 % (11.5-20.0) 09/25/18 06:15 Plt Count 131 Th/cmm (150-400) L 09/25/18 06:15 MPV 8.2 fl 09/25/18 06:15 Add Manual Diff YES 09/22/18 16:32 Neutrophils % 79.1 % (40.0-80.0) 09/25/18 06:15 Band Neutrophils % 1 % (0-10) 09/23/18 05:00 Lymphocytes % 12.3 % (20.0-50.0) L 09/25/18 06:15 Monocytes % 6.9 % (2.0-10.0) 09/25/18 06:15 Eosinophils % 1.1 % (0.0-5.0) 09/25/18 06:15 Basophils % 0.6 % (0.0-2.0) 09/25/18 06:15 Neutrophils (Manual) 83 % (40-80) H 09/23/18 05:00 Lymphocytes 10 % (20-50) L 09/23/18 05:00 Monocytes 6 % (2-10) 09/23/18 05:00 Eosinophils 1 % (0-5) 09/22/18 16:32 Smear Path Review 09/23/18 05:00 Specimen Source arterial 09/22/18 23:41 Sample Site RB 09/22/18 23:41 pH 7.32 (7.35-7.45) L 09/22/18 23:41 pCO2 27.0 mmHg (35.0-45.0) L 09/22/18 23:41 pO2 103.0 mmHg (80.0-100.0) H 09/22/18 23:41 HCO3 13.7 mEq/L (20.0-26.0) L 09/22/18 23:41 Base Excess -10.5 mEq/L (-3.0-3.0) L 09/22/18 23:41 O2 Saturation 97.0 % (92.0-100.0) 09/22/18 23:41 Ronny Test n/a 09/22/18 23:41 Vent Rate n/a 09/22/18 23:41 Inspired O2 21 09/22/18 23:41 Tidal Volume n/a 09/22/18 23:41 PEEP n/a 09/22/18 23:41 Pressure (ins/psv/peep) n/a 09/22/18 23:41 Critical Value dv 09/22/18 23:41 Sodium 136 mEq/L (136-145) 09/25/18 06:15 Potassium 3.9 mEq/L (3.5-5.1) 09/25/18 06:15 Chloride 106 mEq/L (98-107) 09/25/18 06:15 Carbon Dioxide 23.4 mEq/L (21.0-31.0) 09/25/18 06:15 Anion Gap 10.5 (7.0-16.0) 09/25/18 06:15 BUN 21 mg/dL (7-25) 09/25/18 06:15 Creatinine 1.1 mg/dL (0.7-1.3) 09/25/18 06:15 Est GFR ( Amer) > 60.0 ml/min (>90) 09/25/18 06:15 Est GFR (Non-Af Amer) > 60.0 ml/min 09/25/18 06:15 BUN/Creatinine Ratio 19.1 09/25/18 06:15 Glucose 107 mg/dL (70-105) H 09/25/18 06:15 POC Glucose 105 MG/DL (70 - 105) 09/25/18 05:36 Whole Bld Lactic Acid 2.21 mmol/L (0.60-1.99) H* 09/22/18 21:07 Calcium 8.0 mg/dL (8.6-10.3) L 09/25/18 06:15 Phosphorus 3.0 mg/dL (2.5-5.0) 09/22/18 17:40 Magnesium 1.8 mg/dL (1.9-2.7) L 09/23/18 05:00 Total Bilirubin 0.7 mg/dL (0.3-1.0) 09/23/18 05:00 AST 10 U/L (13-39) L 09/23/18 05:00 ALT 11 U/L (7-52) 09/23/18 05:00 Alkaline Phosphatase 218 U/L (34-104) H 09/23/18 05:00 Creatine Kinase 20 U/L (30-223) L 09/23/18 21:45 Troponin I 0.01 ng/mL (0.01-0.05) 09/23/18 21:45 Total Protein 5.9 gm/dL (6.0-8.3) L 09/23/18 05:00 Albumin 2.3 gm/dL (4.2-5.5) L 09/23/18 05:00 Globulin 3.6 gm/dL 09/23/18 05:00 Albumin/Globulin Ratio 0.6 (1.0-1.8) L 09/23/18 05:00 Amylase 147 U/L (29-103) H 09/22/18 17:40 Lipase 37 U/L (11-82) 09/22/18 17:40 Urine Source CLEAN C 09/22/18 16:22 Urine Color YELLOW 09/22/18 16:22 Urine Clarity CLOUDY (CLEAR) 09/22/18 16:22 Urine pH 5.5 (4.6 - 8.0) 09/22/18 16:22 Ur Specific [place] 1.015 (1.005-1.030) 09/22/18 16:22 Urine Protein NEGATIVE mg/dL (NEGATIVE) 09/22/18 16:22 Urine Glucose (UA) >=1000 mg/dL (NEGATIVE) H 09/22/18 16:22 Urine Ketones >=80 mg/dL (NEGATIVE) H 09/22/18 16:22 Urine Blood MODERATE (NEGATIVE) H 09/22/18 16:22 Urine Nitrate NEGATIVE (NEGATIVE) 09/22/18 16:22 Urine Bilirubin NEGATIVE (NEGATIVE) 09/22/18 16:22 Urine Urobilinogen 0.2 E.U./dL (0.2 - 1.0) 09/22/18 16:22 Ur Leukocyte Esterase NEGATIVE (NEGATIVE) 09/22/18 16:22 Urine RBC 0-2 /hpf (0-5) H 09/22/18 16:22 Urine WBC 10-25 /hpf (0-5) H 09/22/18 16:22 Ur Epithelial Cells NONE SEEN /lpf (FEW) 09/22/18 16:22 Urine Bacteria MANY /hpf (NONE SEEN) H 09/22/18 16:22 Serum Ketones NEGATIVE (NEGATIVE) 09/24/18 05:00 - Physical Exam Vitals and I&O: Vital Signs Temp 98.3 F 09/25/18 08:17 Pulse 80 09/25/18 08:17 Resp 18 09/25/18 08:17 BP 100/69 09/25/18 08:17 Pulse Ox 98 09/25/18 08:17 Intake & Output 09/24/18 09/25/18 09/25/18 18:59 06:59 18:59 Intake Total 1800 200 Balance 1800 200 Weight (lbs) 54.431 kg 54.431 kg Intake: Intake, IV Amount 1100 0.9% NS w/20 mEq KCL 1, 1000 000 ml @ 100 mls/hr IV . Q10H REPLACED BY [facility] Rx#:[id number] Piperacillin Sodium/ 100 Tazobact 3.375 gm In Sodium Chloride 0.9% 50 ml @ 100 mls/hr IV Q6HR REPLACED BY [facility] Rx#:[id number] Oral 700 200 Other: # Voids 3 4 # Bowel Movements 1 0 Stool Characteristics Formed Formed Weight Source Bedscale Bedscale Active Medications: Current Medications Acetaminophen (Tylenol) 650 mg PO Q6H PRN PRN Reason: Pain (Mild) Stop: 11/22/18 12:44 Last Admin: 09/23/18 13:12 Dose: 650 mg Ciprofloxacin (Cipro) 250 mg PO BID REPLACED BY [facility] Stop: 11/24/18 08:59 Last Admin: 09/25/18 08:56 Dose: 250 mg Fluconazole (Diflucan) 100 mg PO DAILY REPLACED BY [facility] Stop: 11/24/18 08:59 Last Admin: 09/25/18 08:56 Dose: 100 mg Potassium Chloride/Sodium Chloride (0.9% Ns W/20 Meq Kcl) 1,000 mls @ 100 mls/ hr IV .Q10H REPLACED BY [facility] Stop: 11/22/18 00:50 Last Admin: 09/25/18 05:42 Dose: 100 mls/hr Insulin Aspart (Novolog Insulin Sliding Scale) 0 units SUBQ ACHS [facility]PLACED [facility]; Protocol Stop: 11/22/18 07:29 Last Admin: 09/25/18 07:18 Dose: Not Given Insulin Detemir (Levemir Insulin) 30 units SUBQ QPM [facility]; Protocol Stop: 11/22/18 17:29 Last Admin: 09/24/18 17:32 Dose: 30 units Ondansetron HCl (Zofran) 4 mg IV Q6H PRN PRN Reason: Nausea / Vomiting Stop: 11/22/18 17:20 Tramadol HCl (Ultram) 50 mg PO Q6HR PRN PRN Reason: Severe Pain Stop: 11/22/18 17:20 Last Admin: 09/24/18 20:59 Dose: 50 mg General: no acute distress, well developed, well nourished HEENT: atraumatic, normocephalic, PERRLA, EOMI, moist mucous membrane Neck: supple, no thyromegaly, no lymphadenopathy, no rigid Cardiovascular: S1S2, regular Lungs: clear to auscultation bilaterally, clear to percussion Abdomen: soft, bowel sounds, no tender, no distended, no mass Extremities: no cyanosis, no clubbing, no edema Neurological: awake, alert Skin: intact Infectious Disease Assmt/Plan - Assessment Assessment: 1. Complicated urinary tract infection. 2. Diabetes mellitus type 2. 3. Diabetic ketoacidosis. 4. Noncompliance. 4. Hypomagnesemia. - Plan Plan: Continue diflucan and cipro. Nutritional Asmnt/Malnutr-PDOC - Dietary Evaluation Malnutrition Findings (Please click <Entered> for more info): Nutritional Asmnt/Malnutrition Start: 09/23/18 15: 27 Text: Status: Complete Freq: Protocol: Document 09/23/18 15:28 [email or web address] (Rec: 09/23/18 15:38 LCHENG [email or web address]) Nutritional Asmnt/Malnutrition Patient General Information Nutritional Screening High Risk Consult Diagnosis DKA, UTI Pertinent Medical Hx/Surgical Hx DM Subjective Information Consult received for new onset of DM. Glucose 689 at admission noted. Pt seen lying in bed at time of visit, family at bedside, Telugu speaking. CIRCUIT DESIGNER helped with translation. Pt stated he check blood sugar three times daily at home. Offered diabetic nutrition education and pt would like to read education materials. Pt consumed 100% o fbreakfast this morning per EMR. Current Diet Order/ Nutrition Support [facility] Pertinent Medications novolog, piperacillin, 0.9ns w 20 meq kcl Pertinent Labs 2/4 Na 130, Glucose 300, POC 278-390, Ca 7.8 2/3 Na 126, Glucose 355, POC 308, Ca 7.7, alb 2.3 Nutritional Hx/Data Height 1.73 m Height (Calculated Centimeters) 172.7 Current Weight (lbs) 54.431 kg Weight (Calculated Kilograms) 54.4 Weight (Calculated Grams) 72781.1 [place] Body Weight 154 Body Mass Index (BMI) 18.2 Weight Status Underweight GI Symptoms GI Symptoms None Last BM 2/4 Difficult in: None Skin Integrity/Comment: intact Current %PO Good (75-100%) Estimated Nutritional Goals Calories/Kcals/Kg 25-30 based on IBW 70kg Kcals Calculated 0717-5244 Protein g/k-1.2 Protein Calculated 70-84 Fluid: ml 1750-2100ml (1ml/kcal) Nutritional Problem 1. Problem Problem altered nutrition related labs Etiology hyperglycemia, hx of DM Signs/Symptoms: glucose 300-689, POC 278-390 Malnutrition Related to Morbid Obesity Malnutrition related to morbid obesity No Intervention/Recommendation Comments 1. Continue with [facility] diet as ordered. Diabetic education matirials was given to pt. Not able to discuss diabetes management d/t language barrier. 2. Monitor PO intake, wt, labs and skin integrity 3. F/U as high risk in 2-3 days Expected Outcomes/Goals Expected Outcomes/Goals 1. PO intake to meet at least 75% of nutritional needs. 2. Wt stability, skin to remain intact, labs to approach WNL.
[2018-09-25] MEDS: Insulin Detemir 100 units/mL 10mL Vial SUBQ SCH (16:20)
--- NOTE | 2018-09-25 16:20 | General Progress Note ---
Subjective - Review of Systems Subjective: Patient doing better denied any complaints Objective - Results Result Diagrams: 09/25/18 06:15 09/25/18 06:15 Recent Labs: Laboratory Last Values WBC 9.9 Th/cmm (4.8-10.8) 09/25/18 06:15 RBC 3.34 Mil/cmm (4.30-5.70) L 09/25/18 06:15 Hgb 10.4 gm/dL (12-16) L 09/25/18 06:15 Hct 31.0 % (41.0-60) L 09/25/18 06:15 MCV 92.6 fl (80-99) 09/25/18 06:15 MCH 31.1 pg (26.0-30.0) H 09/25/18 06:15 MCHC Differential 33.6 pg (28.0-36.0) 09/25/18 06:15 RDW 12.3 % (11.5-20.0) 09/25/18 06:15 Plt Count 131 Th/cmm (150-400) L 09/25/18 06:15 MPV 8.2 fl 09/25/18 06:15 Add Manual Diff YES 09/22/18 16:32 Neutrophils % 79.1 % (40.0-80.0) 09/25/18 06:15 Band Neutrophils % 1 % (0-10) 09/23/18 05:00 Lymphocytes % 12.3 % (20.0-50.0) L 09/25/18 06:15 Monocytes % 6.9 % (2.0-10.0) 09/25/18 06:15 Eosinophils % 1.1 % (0.0-5.0) 09/25/18 06:15 Basophils % 0.6 % (0.0-2.0) 09/25/18 06:15 Neutrophils (Manual) 83 % (40-80) H 09/23/18 05:00 Lymphocytes 10 % (20-50) L 09/23/18 05:00 Monocytes 6 % (2-10) 09/23/18 05:00 Eosinophils 1 % (0-5) 09/22/18 16:32 Smear Path Review 09/23/18 05:00 Specimen Source arterial 09/22/18 23:41 Sample Site RB 09/22/18 23:41 pH 7.32 (7.35-7.45) L 09/22/18 23:41 pCO2 27.0 mmHg (35.0-45.0) L 09/22/18 23:41 pO2 103.0 mmHg (80.0-100.0) H 09/22/18 23:41 HCO3 13.7 mEq/L (20.0-26.0) L 09/22/18 23:41 Base Excess -10.5 mEq/L (-3.0-3.0) L 09/22/18 23:41 O2 Saturation 97.0 % (92.0-100.0) 09/22/18 23:41 Ronny Test n/a 09/22/18 23:41 Vent Rate n/a 09/22/18 23:41 Inspired O2 21 09/22/18 23:41 Tidal Volume n/a 09/22/18 23:41 PEEP n/a 09/22/18 23:41 Pressure (ins/psv/peep) n/a 09/22/18 23:41 Critical Value dv 09/22/18 23:41 Sodium 136 mEq/L (136-145) 09/25/18 06:15 Potassium 3.9 mEq/L (3.5-5.1) 09/25/18 06:15 Chloride 106 mEq/L (98-107) 09/25/18 06:15 Carbon Dioxide 23.4 mEq/L (21.0-31.0) 09/25/18 06:15 Anion Gap 10.5 (7.0-16.0) 09/25/18 06:15 BUN 21 mg/dL (7-25) 09/25/18 06:15 Creatinine 1.1 mg/dL (0.7-1.3) 09/25/18 06:15 Est GFR ( Amer) > 60.0 ml/min (>90) 09/25/18 06:15 Est GFR (Non-Af Amer) > 60.0 ml/min 09/25/18 06:15 BUN/Creatinine Ratio 19.1 09/25/18 06:15 Glucose 107 mg/dL (70-105) H 09/25/18 06:15 POC Glucose 310 MG/DL (70 - 105) H 09/25/18 16:05 Whole Bld Lactic Acid 2.21 mmol/L (0.60-1.99) H* 09/22/18 21:07 Calcium 8.0 mg/dL (8.6-10.3) L 09/25/18 06:15 Phosphorus 3.0 mg/dL (2.5-5.0) 09/22/18 17:40 Magnesium 1.8 mg/dL (1.9-2.7) L 09/23/18 05:00 Total Bilirubin 0.7 mg/dL (0.3-1.0) 09/23/18 05:00 AST 10 U/L (13-39) L 09/23/18 05:00 ALT 11 U/L (7-52) 09/23/18 05:00 Alkaline Phosphatase 218 U/L (34-104) H 09/23/18 05:00 Creatine Kinase 20 U/L (30-223) L 09/23/18 21:45 Troponin I 0.01 ng/mL (0.01-0.05) 09/23/18 21:45 Total Protein 5.9 gm/dL (6.0-8.3) L 09/23/18 05:00 Albumin 2.3 gm/dL (4.2-5.5) L 09/23/18 05:00 Globulin 3.6 gm/dL 09/23/18 05:00 Albumin/Globulin Ratio 0.6 (1.0-1.8) L 09/23/18 05:00 Amylase 147 U/L (29-103) H 09/22/18 17:40 Lipase 37 U/L (11-82) 09/22/18 17:40 Urine Source CLEAN C 09/22/18 16:22 Urine Color YELLOW 09/22/18 16:22 Urine Clarity CLOUDY (CLEAR) 09/22/18 16:22 Urine pH 5.5 (4.6 - 8.0) 09/22/18 16:22 Ur Specific [place] 1.015 (1.005-1.030) 09/22/18 16:22 Urine Protein NEGATIVE mg/dL (NEGATIVE) 09/22/18 16:22 Urine Glucose (UA) >=1000 mg/dL (NEGATIVE) H 09/22/18 16:22 Urine Ketones >=80 mg/dL (NEGATIVE) H 09/22/18 16:22 Urine Blood MODERATE (NEGATIVE) H 09/22/18 16:22 Urine Nitrate NEGATIVE (NEGATIVE) 09/22/18 16:22 Urine Bilirubin NEGATIVE (NEGATIVE) 09/22/18 16:22 Urine Urobilinogen 0.2 E.U./dL (0.2 - 1.0) 09/22/18 16:22 Ur Leukocyte Esterase NEGATIVE (NEGATIVE) 09/22/18 16:22 Urine RBC 0-2 /hpf (0-5) H 09/22/18 16:22 Urine WBC 10-25 /hpf (0-5) H 09/22/18 16:22 Ur Epithelial Cells NONE SEEN /lpf (FEW) 09/22/18 16:22 Urine Bacteria MANY /hpf (NONE SEEN) H 09/22/18 16:22 Serum Ketones NEGATIVE (NEGATIVE) 09/24/18 05:00 - Physical Exam Vitals and I&O: Vital Signs Temp 98.0 F 09/25/18 16:04 Pulse 96 09/25/18 16:04 Resp 18 09/25/18 16:04 BP 115/82 09/25/18 16:04 Pulse Ox 99 09/25/18 16:04 Intake & Output 09/24/18 09/25/18 09/25/18 18:59 06:59 18:59 Intake Total 1800 200 Balance 1800 200 Weight (lbs) 54.431 kg 54.431 kg Intake: Intake, IV Amount 1100 0.9% NS w/20 mEq KCL 1, 1000 000 ml @ 100 mls/hr IV . Q10H [facility] Rx#:[id number] Piperacillin Sodium/ 100 Tazobact 3.375 gm In Sodium Chloride 0.9% 50 ml @ 100 mls/hr IV Q6HR [facility] Rx#:[id number] Oral 700 200 Other: # Voids 3 4 # Bowel Movements 1 0 Stool Characteristics Formed Formed Formed Weight Source Bedscale Bedscale Active Medications: Current Medications Acetaminophen (Tylenol) 650 mg PO Q6H PRN PRN Reason: Pain (Mild) Stop: 11/22/18 12:44 Last Admin: 09/23/18 13:12 Dose: 650 mg Ciprofloxacin (Cipro) 250 mg PO BID [facility] Stop: 11/24/18 08:59 Last Admin: 09/25/18 08:56 Dose: 250 mg Fluconazole (Diflucan) 100 mg PO DAILY [facility] Stop: 11/24/18 08:59 Last Admin: 09/25/18 08:56 Dose: 100 mg Potassium Chloride/Sodium Chloride (0.9% Ns W/20 Meq Kcl) 1,000 mls @ 100 mls/ hr IV .Q10H [facility] Stop: 11/22/18 00:50 Last Admin: 09/25/18 05:42 Dose: 100 mls/hr Insulin Aspart (Novolog Insulin Sliding Scale) 0 units SUBQ ACHS [facility]; Protocol Stop: 11/22/18 07:29 Last Admin: 09/25/18 12:27 Dose: 7 units Insulin Detemir (Levemir Insulin) 30 units SUBQ QPM [facility]; Protocol Stop: 11/22/18 17:29 Last Admin: 09/24/18 17:32 Dose: 30 units Ondansetron HCl (Zofran) 4 mg IV Q6H PRN PRN Reason: Nausea / Vomiting Stop: 11/22/18 17:20 Tramadol HCl (Ultram) 50 mg PO Q6HR PRN PRN Reason: Severe Pain Stop: 11/22/18 17:20 Last Admin: 09/24/18 20:59 Dose: 50 mg General: Alert Cardiovascular: Regular rate Lungs: Clear to auscultation Abdomen: Soft, no Tender Assessment/Plan - Assessment Assessment: DKA UTI Hypokalemia Non Compliance - Plan Plan: Continue antibiotics Blood sugar better Basal bolus insulin K replacement DC IV Fluids Nutritional Asmnt/Malnutr-PDOC - Dietary Evaluation Malnutrition Findings (Please click <Entered> for more info): Nutritional Asmnt/Malnutrition Start: 09/23/18 15: 27 Text: Status: Complete Freq: Protocol: Document 09/23/18 15:28 LCHENG (Rec: 09/23/18 15:38 [email or web address]) Nutritional Asmnt/Malnutrition Patient General Information Nutritional Screening High Risk Consult Diagnosis DKA, UTI Pertinent Medical Hx/Surgical Hx DM Subjective Information Consult received for new onset of DM. Glucose 689 at admission noted. Pt seen lying in bed at time of visit, family at bedside, Urdu speaking. [employer] helped with translation. Pt stated he check blood sugar three times daily at home. Offered diabetic nutrition education and pt would like to read education materials. Pt consumed 100% o fbreakfast this morning per EMR. Current Diet Order/ Nutrition Support CCHO Pertinent Medications novolog, piperacillin, 0.9ns w 20 meq kcl Pertinent Labs 2/4 Na 130, Glucose 300, POC 278-390, Ca 7.8 2/3 Na 126, Glucose 355, POC 308, Ca 7.7, alb 2.3 Nutritional Hx/Data Height 1.73 m Height (Calculated Centimeters) 172.7 Current Weight (lbs) 54.431 kg Weight (Calculated Kilograms) 54.4 Weight (Calculated Grams) 73225.1 [place] Body Weight 154 Body Mass Index (BMI) 18.2 Weight Status Underweight GI Symptoms GI Symptoms None Last BM 2/4 Difficult in: None Skin Integrity/Comment: intact Current %PO Good (75-100%) Estimated Nutritional Goals Calories/Kcals/Kg 25-30 based on IBW 70kg Kcals Calculated 0108-9301 Protein g/k-1.2 Protein Calculated 70-84 Fluid: ml 1750-2100ml (1ml/kcal) Nutritional Problem 1. Problem Problem altered nutrition related labs Etiology hyperglycemia, hx of DM Signs/Symptoms: glucose 300-689, POC 278-390 Malnutrition Related to Morbid Obesity Malnutrition related to morbid obesity No Intervention/Recommendation Comments 1. Continue with [facility] diet as ordered. Diabetic education matirials was given to pt. Not able to discuss diabetes management d/t language barrier. 2. Monitor PO intake, wt, labs and skin integrity 3. F/U as high risk in 2-3 days Expected Outcomes/Goals Expected Outcomes/Goals 1. PO intake to meet at least 75% of nutritional needs. 2. Wt stability, skin to remain intact, labs to approach WNL.
== END 2018-09-25 17:30 | disposition home or self-care (01) | DRG 420 ==
LOC: ER 15:55 → TELE 09-23 00:45
PROVIDERS: ADMIT Family Medicine; ATTEND Family Medicine
DX: E11.10 Type 2 diabetes mellitus with ketoacidosis without coma (principal); E44.1 Mild protein-calorie malnutrition; E87.2 Acidosis; E83.42 Hypomagnesemia; E87.1 Hypo-osmolality and hyponatremia; D72.829 Elevated white blood cell count, unspecified; E11.65 Type 2 diabetes mellitus with hyperglycemia; E86.0 Dehydration; E87.6 Hypokalemia; N39.0 Urinary tract infection, site not specified; Z91.19 Patient's noncompliance with other medical treatment and regimen; Z68.1 Body mass index [BMI] 19.9 or less, adult; Z23 Encounter for immunization
CPT/HCPCS: 36415-UA; 36600-90; 80048-TC; 80053-TC; 81001-TC; 82010-TC; 82150-TC; 82550-TC; 82803-TC; 82947-TC; 82948-90; 83036-90; 83605; 83690-TC; 83735-TC; 84100-TC; 84484-TC; 85007-TC; 85025-TC; 87086-90; 93005; 94760; 96375; J1815; J2543; J3480; J7030; Z7610